=== PATIENT | female | born 1960 | race Caucasian/White ===

== ENCOUNTER 2017-09-15 19:41 | Inpatient (IN) ==
[2017-09-15] MEDS ORDERED: ASPIRIN 325 MG TABLET PO STA (20:13)
[2017-09-15] MEDS ORDERED: MORPHINE 4 MG/1 ML VIAL IV STA (20:13)
[2017-09-15] MEDS ORDERED: NITROGLYCERIN 2% OINT 1 INCH/GM PACK TOP STA (20:13)
[2017-09-15] MEDS ORDERED: ONDANSETRON 4 MG/2 ML VIAL IV STA (20:13)
[2017-09-15] MEDS ORDERED: ALUM/MAG/SIMETH/LIDO VISC 1:1 30 ML BOTTLE PO STA (20:13)
[2017-09-15] MEDS ORDERED: LORazepam 1 MG TABLET PO STA (20:13)
[2017-09-15 20:35] LABS: Basophils % 0.4 % (0.0-0.8); Eosinophils # 0.2 10*3/uL (0.0-0.87); Eosinophils % 2.8 % (0.00-10.9); Hematocrit 39.5 VOL% (35.7-47.0); Hemoglobin 13.2 GM/DL (12.0-16.0); Immature Granulocytes % 0.3 %; Immature Granulocytes Absolute 0.02 #; Lymphocytes # 2.8 10*3/uL (1.4-4.0); Lymphocytes % 36.6 % (21.3-54.2); Mean Corpuscular HGB Conc 33.4 GM/DL (32-36); Mean Corpuscular Hemoglobin 30 PG (27-34); Mean Corpuscular Volume 89.6 FL (87-102); Mean Platelet Volume 11.9 FL (9.6-12.0); Monocytes # 0.5 10*3/uL (0.11-0.8); Monocytes % 6.1 % (1.7-12.7); Neutrophils # 4.1 10*3/uL (1.4-7.4); Neutrophils % 53.8 % (38.7-73.9); Platelet Count 239 T/CUMM (130-400); Red Blood Count 4.41 MC/CUMM (3.8-5.5); Red Cell Distribution Width 13.4 % (9.3-17.3); White Blood Count 7.6 T/CUMM (4-12)
[2017-09-15 20:46] LABS: INR 0.9; PT Patient Result 9.8 SECS
[2017-09-15 20:55] LABS: Alanine Aminotransferase 20 U/L (13-56); Albumin 3.8 G/DL (3.4-5.0); Alkaline Phosphatase 76 U/L (45-117); Aspartate Amino Transferase 15 U/L (0-37); Bilirubin,Total < 0.39 MG/DL (0.2-1.0); Blood Urea Nitrogen 10 MG/DL (7-18); Calcium 9.5 MG/DL (8.5-10.1); Glucose 143 MG/DL (74-106); Osmolality,Calculated 281.3 MOS/KG (273-304); Potassium 3.1 MMOL/L (3.5-5.1); Sodium 141 MMOL/L (136-145); Total Protein 7.6 G/DL (6.4-8.3)
[2017-09-15] MEDS ORDERED: POTASSIUM CHLORIDE 20 MEQ TABLET PO STA (21:09)
[2017-09-15 21:49] LABS: Apearance,Urine Slightly Hazy (Clear); Bacteria,Urine Occasional /HPF (Few); Bilirubin,Urine Negative (Negative); Blood, Urine Negative (Negative); Glucose,Urine (UA) Negative (Negative); Granular Casts,Urine 1 /LPF (0-1); Ketones,Urine Negative (Negative); Nitrite,Urine Negative (Negative); Protein,Urine Negative; Squamous Epithelial Cell,Urine Occasional /HPF (0-10); Urine Color Straw (Yellow); Urine Specific Gravity 1.005 (1.001-1.035); Urine Urobilinogen < 2.0 EU/DL (0.2-1.0); WBC,Urine 1 /HPF (0-6)
[2017-09-15] MEDS ORDERED: traMADol 50 MG TABLET PO PRN (23:03)
[2017-09-15] MEDS ORDERED: MORPHINE 4 MG/1 ML VIAL IV PRN (23:03)
[2017-09-15] MEDS ORDERED: ONDANSETRON 4 MG/2 ML VIAL IV PRN (23:03)
[2017-09-15] MEDS ORDERED: CLORAZEPATE 7.5 MG TABLET PO PRN (23:03)
[2017-09-15] MEDS: ACETAMINOPHEN 325 MG TABLET PO PRN (23:26)
[2017-09-15] MEDS: SODIUM CHLORIDE 0.9% 1,000 ML IV SCH (23:29)
[2017-09-16] MEDS: ENOXAPARIN 80 MG/0.8 ML SYRINGE SUBCUT SCH ×2 (00:32→13:09)
[2017-09-16 03:16] LABS: Basophils % 0.4 % (0.0-0.8); Eosinophils # 0.2 10*3/uL (0.0-0.87); Eosinophils % 2.1 % (0.00-10.9); Hematocrit 33.5 VOL% (35.7-47.0); Hemoglobin 11.1 GM/DL (12.0-16.0); Immature Granulocytes % 0.3 %; Immature Granulocytes Absolute 0.02 #; Lymphocytes % 27.7 % (21.3-54.2); Mean Corpuscular HGB Conc 33.1 GM/DL (32-36); Mean Corpuscular Hemoglobin 30 PG (27-34); Mean Corpuscular Volume 90.8 FL (87-102); Mean Platelet Volume 11.9 FL (9.6-12.0); Monocytes # 0.5 10*3/uL (0.11-0.8); Monocytes % 6.6 % (1.7-12.7); Neutrophils # 4.6 10*3/uL (1.4-7.4); Neutrophils % 62.9 % (38.7-73.9); Platelet Count 199 T/CUMM (130-400); Red Blood Count 3.69 MC/CUMM (3.8-5.5); Red Cell Distribution Width 13.5 % (9.3-17.3); White Blood Count 7.3 T/CUMM (4-12)
[2017-09-16 03:31] LABS: Alanine Aminotransferase 17 U/L (13-56); Alkaline Phosphatase 59 U/L (45-117); Aspartate Amino Transferase 13 U/L (0-37); Bilirubin,Total < 0.39 MG/DL (0.2-1.0); Blood Urea Nitrogen 8 MG/DL (7-18); Calcium 8.4 MG/DL (8.5-10.1); Cholesterol 186 MG/DL (50-200); Glucose 102 MG/DL (74-106); HDL Cholesterol 52 MG/DL (40-60); Potassium 4.1 MMOL/L (3.5-5.1); Risk Ratio 3.58; Sodium 143 MMOL/L (136-145); Total Protein 6.2 G/DL (6.4-8.3); Triglycerides 180 MG/DL (2-150)
[2017-09-16] MEDS ORDERED: MAGNESIUM SULF RIDER 2 GM in PREMIX 1 EACH IV PRN (07:57)
[2017-09-16] MEDS ORDERED: POTASSIUM CHLORIDE RIDER 10 MEQ in PREMIX 1 EACH IV PRN (07:57)
[2017-09-16] MEDS ORDERED: DIAZEPAM 5 MG TABLET PO ONE (07:57)
[2017-09-16] MEDS ORDERED: diphenhydrAMINE CAP 25 MG CAPSULE PO ONE (07:57)
[2017-09-16] MEDS: SODIUM CHLORIDE 0.9% 1,000 ML IV SCH ×4 (09:09→19:10)
[2017-09-16] MEDS: ESTRADIOL 1 MG TABLET PO SCH (09:14)
[2017-09-16] MEDS: amLODIPine 2.5 MG TABLET PO SCH (09:14)
[2017-09-16] MEDS: ESCITALOPRAM 10 MG TABLET PO SCH (09:14)
[2017-09-16] MEDS: DOCUSATE SODIUM 100 MG CAPSULE PO SCH ×2 (09:14→21:39)
[2017-09-16] MEDS: PANTOPRAZOLE 40 MG TABLET PO SCH (09:14)
[2017-09-16] MEDS: LISINOPRIL/HCTZ 20-12.5 MG TABLET PO SCH (09:14)
[2017-09-16] MEDS ORDERED: LIDOCAINE 1% 20 ML VIAL ONE ×2 (11:10→11:25)
[2017-09-16] MEDS ORDERED: HEPARIN/NACL 0.9% 2 UNITS/ML 1,000 ML IV ONE (11:10)
[2017-09-16] MEDS ORDERED: fentaNYL 100 MCG/2 ML VIAL ONE (11:26)
[2017-09-16] MEDS ORDERED: MIDAZOLAM 2 MG/2 ML VIAL ONE (11:26)
[2017-09-16] MEDS ORDERED: ZALEPLON 5 MG CAPSULE PO PRN (14:44)
[2017-09-16] MEDS: ACETAMINOPHEN 325 MG TABLET PO PRN (18:35)
[2017-09-16] MEDS ORDERED: SIMVASTATIN 20 MG TABLET PO SCH (21:00)
[2017-09-16] MEDS ORDERED: ZALEPLON 5 MG CAPSULE PO SCH (21:00)
[2017-09-17] MEDS: ACETAMINOPHEN 325 MG TABLET PO PRN (04:00)
[2017-09-17] MEDS: SODIUM CHLORIDE 0.9% 1,000 ML IV SCH ×4 (04:06→08:59)
[2017-09-17 05:02] LABS: Basophils % 0.4 % (0.0-0.8); Eosinophils # 0.1 10*3/uL (0.0-0.87); Eosinophils % 1.7 % (0.00-10.9); Hematocrit 29.2 VOL% (35.7-47.0); Immature Granulocytes % 0.4 %; Immature Granulocytes Absolute 0.03 #; Lymphocytes # 1.5 10*3/uL (1.4-4.0); Lymphocytes % 18.7 % (21.3-54.2); Mean Corpuscular HGB Conc 34.2 GM/DL (32-36); Mean Corpuscular Hemoglobin 31 PG (27-34); Mean Platelet Volume 12.1 FL (9.6-12.0); Monocytes # 0.5 10*3/uL (0.11-0.8); Monocytes % 6.4 % (1.7-12.7); Neutrophils # 5.6 10*3/uL (1.4-7.4); Neutrophils % 72.4 % (38.7-73.9); Platelet Count 167 T/CUMM (130-400); Red Blood Count 3.28 MC/CUMM (3.8-5.5); Red Cell Distribution Width 13.6 % (9.3-17.3); White Blood Count 7.8 T/CUMM (4-12)
[2017-09-17 05:17] LABS: Calcium 7.8 MG/DL (8.5-10.1); Osmolality,Calculated 277.4 MOS/KG (273-304); Potassium 3.8 MMOL/L (3.5-5.1)
[2017-09-17 08:19] VITALS: BP 110/59
[2017-09-17] MEDS: PANTOPRAZOLE 40 MG TABLET PO SCH (08:56)
[2017-09-17] MEDS: ESTRADIOL 1 MG TABLET PO SCH (08:56)
[2017-09-17] MEDS: ESCITALOPRAM 10 MG TABLET PO SCH (08:56)
[2017-09-17] MEDS: DOCUSATE SODIUM 100 MG CAPSULE PO SCH (08:56)
[2017-09-17] MEDS: amLODIPine 2.5 MG TABLET PO SCH (08:56)
[2017-09-17] MEDS: LISINOPRIL/HCTZ 20-12.5 MG TABLET PO SCH (08:56)
== END 2017-09-17 10:05 | disposition home or self-care (01) | DRG 287 ==
LOC: N.ED 19:41 → N.EDINP 21:34 → N.TELES 22:05
PROVIDERS: ADMIT Family Medicine; ATTEND Family Medicine
PROC: CLCCHCL (ICD-10-PCS; 2017-09-16 11:45)